=== PATIENT | female | born 2000 | race Caucasian/White ===

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

== ENCOUNTER 2021-03-22 11:23 | Emergency (ER) | payer MEDICAID, SELFPAY ==
[~2021-03-22] VITALS: Ht 162.6 cm; Wt 90.7 kg
[2021-03-22 12:07] VITALS: BP 114/63
--- NOTE | 2021-03-22 15:50 | NUR ---
PT NOT FOUND IN TENT, TOLD FACILITY STAFF THAT SHE WAS LEAVING. ERMD MADE AWARE PT LEFT WITHOUT DISCHARGE
[2021-03-22 16:03] VITALS: BP 114/63
== END 2021-03-22 15:50 | disposition left against medical advice (07) ==
LOC: MED 11:23
DX: M79.10 Myalgia, unspecified site (principal); M54.9 Dorsalgia, unspecified; R07.9 Chest pain, unspecified; Z20.822 Contact with and (suspected) exposure to COVID-19
CPT/HCPCS: 71045; 81002; 81025; 87426; 93005; 99285; U0003

== ENCOUNTER 2023-07-17 08:04 | Emergency (ER) | payer MEDICAID ==
[~2023-07-17] VITALS: Ht 167.6 cm; Wt 72.6 kg
[2023-07-17 08:28] VITALS: BP 118/68; PULSE 93; RESP 18; TEMP 98; O2SAT 98
[2023-07-17] MEDS ORDERED: AMOX500C25 PO (11:09)
== END 2023-07-17 11:28 | disposition home or self-care (01) ==
LOC: MED 08:04
DX: O26.891 Other specified pregnancy related conditions, first trimester (principal); H66.92 Otitis media, unspecified, left ear; O99.511 Diseases of the respiratory system complicating pregnancy, first trimester; J02.9 Acute pharyngitis, unspecified; Z79.2 Long term (current) use of antibiotics; Z3A.01 Less than 8 weeks gestation of pregnancy
CPT/HCPCS: 87081; 99283